=== PATIENT | male | born 1960 | race Caucasian/White ===

== ENCOUNTER 2017-09-13 23:14 | Inpatient (IN) | payer BC ==
[~2017-09-13] VITALS: Ht 167.6 cm; Wt 117.5 kg
[2017-09-13 23:40] VITALS: BP 96/69
[2017-09-14] VITALS (15 sets, daily range): BP systolic 91–131; BP diastolic 42–76
[2017-09-14 00:22] LABS: PLATELET COUNT 169 x10^3mcL (130-400)
[2017-09-14 00:26] LABS: RED CELL DISTRIBUTION WIDTH 16.7 % (11.5-14.5)
[2017-09-14 00:46] LABS: CALCIUM 8.4 mg/dL (8.5-10.1); POTASSIUM SERUM 4.7 mmol/L (3.5-5.1)
[2017-09-14 01:01] LABS: BILIRUBIN TOTAL 0.7 mg/dL (0.20-1.00); MAGNESIUM 2.8 mg/dL (1.8-2.4); T4(THYROXINE) 6.6 ug/dL (4.7-13.3); TOTAL PROTEIN, SERUM 7.5 g/dL (6.4-8.2)
[2017-09-14 01:04] LABS: ALBUMIN 3.3 g/dL (3.4-5.0)
[2017-09-14 01:26] LABS: UA SPECIFIC GRAVITY <=1.005 (1.005-1.035); microscopic required? YES; urine erythrocyte NEGATIVE (NEGATIVE)
[2017-09-14 02:18] LABS: AMPHETAMINE QUAL UR NONE DETECTED (NEG <=1000)
[2017-09-14 04:50] LABS: BASOPHIL % 0.1 % (0-2); PLATELET COUNT 140 x10^3mcL (130-400); RED CELL DISTRIBUTION WIDTH 16.8 % (11.5-14.5)
[2017-09-14 04:56] LABS: CALCIUM 7.3 mg/dL (8.5-10.1); CREATININE SERUM 1.6 mg/dL (0.7-1.3); PHOSPHOROUS 6.5 mg/dL (2.5-4.9)
[2017-09-14 05:05] LABS: CARBON DIOXIDE 23.3 mmol/L (21-32); MAGNESIUM 2.1 mg/dL (1.8-2.4)
[2017-09-15] VITALS (19 sets, daily range): BP systolic 111–140; BP diastolic 58–89
[2017-09-15 05:35] LABS: PLATELET COUNT 68 x10^3mcL (130-400); RED CELL DISTRIBUTION WIDTH 17.1 % (11.5-14.5)
[2017-09-15 05:56] LABS: CALCIUM 7.1 mg/dL (8.5-10.1); CARBON DIOXIDE 27.9 mmol/L (21-32); CHLORIDE SERUM 113 mmol/L (98-107); CREATININE SERUM 1.1 mg/dL (0.7-1.3); GFR1 > 60 mL/min; GLUCOSE SERUM 138 mg/dL (74-106); MAGNESIUM 2.8 mg/dL (1.8-2.4); PHOSPHOROUS 2.1 mg/dL (2.5-4.9); POTASSIUM SERUM 3.8 mmol/L (3.5-5.1); SODIUM SERUM 147 mmol/L (136-145)
[2017-09-15 06:03] LABS: BAND NEUTROPHIL 5 % (0-10); METAMYELOCTE 1 % (0-2); MONOCYTE 9 % (0-7); SEGMENTED NEUTROPHILS 72 % (37-75)
[2017-09-15 06:05] LABS: rbc morphology (normal/abnorm) ABNORMAL (NORMAL)
[2017-09-16] VITALS (17 sets, daily range): BP systolic 106–143; BP diastolic 60–95
[2017-09-16 05:31] LABS: CALCIUM 7.6 mg/dL (8.5-10.1); CARBON DIOXIDE 30.9 mmol/L (21-32); CHLORIDE SERUM 113 mmol/L (98-107); GFR1 > 60 mL/min; GLUCOSE SERUM 120 mg/dL (74-106); MAGNESIUM 2.3 mg/dL (1.8-2.4); PHOSPHOROUS 1.6 mg/dL (2.5-4.9); POTASSIUM SERUM 3.9 mmol/L (3.5-5.1); SODIUM SERUM 148 mmol/L (136-145)
[2017-09-16 06:13] LABS: RED CELL DISTRIBUTION WIDTH 17.1 % (11.5-14.5)
[2017-09-16 06:14] LABS: PLATELET COUNT 66 x10^3mcL (130-400)
[2017-09-16 06:37] LABS: BAND NEUTROPHIL 0 % (0-10); BASOPHIL 0 % (0-2); MONOCYTE 6 % (0-7); PLATELET MORPHOLOGY PLATELETS DECREASED; SEGMENTED NEUTROPHILS 65 % (37-75); rbc morphology (normal/abnorm) ABNORMAL (NORMAL)
[2017-09-17] VITALS (16 sets, daily range): BP systolic 111–139; BP diastolic 61–81
[2017-09-17 05:49] LABS: BASOPHIL % 0.4 % (0-2)
[2017-09-17 05:58] LABS: PLATELET COUNT 72 x10^3mcL (130-400); RED CELL DISTRIBUTION WIDTH 17.1 % (11.5-14.5)
[2017-09-17 06:00] LABS: CALCIUM 8.1 mg/dL (8.5-10.1); CARBON DIOXIDE 27.7 mmol/L (21-32); CHLORIDE SERUM 111 mmol/L (98-107); CREATININE SERUM 0.9 mg/dL (0.7-1.3); GFR1 > 60 mL/min; GLUCOSE SERUM 99 mg/dL (74-106); MAGNESIUM 1.8 mg/dL (1.8-2.4); PHOSPHOROUS 3.5 mg/dL (2.5-4.9); POTASSIUM SERUM 3.9 mmol/L (3.5-5.1); SODIUM SERUM 145 mmol/L (136-145)
[2017-09-18] VITALS (19 sets, daily range): BP systolic 108–141; BP diastolic 62–84
[2017-09-18 05:28] LABS: CALCIUM 8.5 mg/dL (8.5-10.1); CARBON DIOXIDE 30.7 mmol/L (21-32); CHLORIDE SERUM 107 mmol/L (98-107); CREATININE SERUM 0.9 mg/dL (0.7-1.3); GFR1 > 60 mL/min; GLUCOSE SERUM 107 mg/dL (74-106); MAGNESIUM 1.7 mg/dL (1.8-2.4); POTASSIUM SERUM 3.9 mmol/L (3.5-5.1); SODIUM SERUM 144 mmol/L (136-145)
[2017-09-18 05:33] LABS: PLATELET COUNT 82 x10^3mcL (130-400); RED CELL DISTRIBUTION WIDTH 16.7 % (11.5-14.5)
[2017-09-18 06:05] LABS: BAND NEUTROPHIL 0 % (0-10); BASOPHIL 0 % (0-2); MONOCYTE 8 % (0-7); SEGMENTED NEUTROPHILS 60 % (37-75)
[2017-09-18 06:07] LABS: rbc morphology (normal/abnorm) ABNORMAL (NORMAL)
[2017-09-19] VITALS (17 sets, daily range): BP systolic 105–160; BP diastolic 65–96
[2017-09-19 05:19] LABS: BASOPHIL % 0.7 % (0-2)
[2017-09-19 05:48] LABS: PLATELET COUNT 81 x10^3mcL (130-400); RED CELL DISTRIBUTION WIDTH 16.8 % (11.5-14.5)
[2017-09-19 06:14] LABS: ALBUMIN 2.5 g/dL (3.4-5.0); CALCIUM 8.6 mg/dL (8.5-10.1); CARBON DIOXIDE 26.8 mmol/L (21-32); CHLORIDE SERUM 104 mmol/L (98-107); GFR1 > 60 mL/min; GLUCOSE SERUM 113 mg/dL (74-106); MAGNESIUM 1.8 mg/dL (1.8-2.4); PHOSPHOROUS 4.5 mg/dL (2.5-4.9); POTASSIUM SERUM 3.8 mmol/L (3.5-5.1); SODIUM SERUM 141 mmol/L (136-145)
[2017-09-20] VITALS (18 sets, daily range): BP systolic 94–159; BP diastolic 58–101
[2017-09-20 05:42] LABS: BASOPHIL % 0.3 % (0-2)
[2017-09-20 05:51] LABS: CALCIUM 8.3 mg/dL (8.5-10.1); CARBON DIOXIDE 27.6 mmol/L (21-32); CHLORIDE SERUM 106 mmol/L (98-107); CREATININE SERUM 0.8 mg/dL (0.7-1.3); GFR1 > 60 mL/min; GLUCOSE SERUM 92 mg/dL (74-106); MAGNESIUM 1.8 mg/dL (1.8-2.4); PHOSPHOROUS 4.3 mg/dL (2.5-4.9); POTASSIUM SERUM 4.1 mmol/L (3.5-5.1); SODIUM SERUM 139 mmol/L (136-145)
[2017-09-20 06:07] LABS: PLATELET COUNT 63 x10^3mcL (130-400); RED CELL DISTRIBUTION WIDTH 16.1 % (11.5-14.5)
[2017-09-21] VITALS (11 sets, daily range): BP systolic 93–145; BP diastolic 57–81
[2017-09-21 06:10] LABS: BASOPHIL % 0.5 % (0-2)
[2017-09-21 06:17] LABS: CALCIUM 7.8 mg/dL (8.5-10.1); CARBON DIOXIDE 29.8 mmol/L (21-32); CHLORIDE SERUM 106 mmol/L (98-107); CREATININE SERUM 0.8 mg/dL (0.7-1.3); GFR1 > 60 mL/min; GLUCOSE SERUM 100 mg/dL (74-106); MAGNESIUM 1.7 mg/dL (1.8-2.4); PHOSPHOROUS 4.1 mg/dL (2.5-4.9); SODIUM SERUM 141 mmol/L (136-145)
[2017-09-21 06:18] LABS: PLATELET COUNT 60 x10^3mcL (130-400); RED CELL DISTRIBUTION WIDTH 15.8 % (11.5-14.5)
[2017-09-22 03:39] VITALS: BP 106/60
[2017-09-22 06:13] LABS: CALCIUM 8.5 mg/dL (8.5-10.1); CARBON DIOXIDE 27.6 mmol/L (21-32); CHLORIDE SERUM 105 mmol/L (98-107); CREATININE SERUM 0.7 mg/dL (0.7-1.3); GFR1 > 60 mL/min; GLUCOSE SERUM 94 mg/dL (74-106); MAGNESIUM 1.6 mg/dL (1.8-2.4); PHOSPHOROUS 4.3 mg/dL (2.5-4.9); POTASSIUM SERUM 3.6 mmol/L (3.5-5.1); SODIUM SERUM 140 mmol/L (136-145)
[2017-09-22 06:15] LABS: PLATELET COUNT 55 x10^3mcL (130-400); RED CELL DISTRIBUTION WIDTH 15.2 % (11.5-14.5)
[2017-09-22 07:40] VITALS: BP 131/73
[2017-09-22 10:06] VITALS: Ht 167.6 cm; Wt 117.5 kg
[2017-09-22 11:22] LABS: BAND NEUTROPHIL 3 % (0-10); MONOCYTE 9 % (0-7); SEGMENTED NEUTROPHILS 64 % (37-75)
[2017-09-22 11:23] LABS: rbc morphology (normal/abnorm) ABNORMAL (NORMAL)
[2017-09-22 11:34] VITALS: BP 128/71
[2017-09-22 15:41] VITALS: BP 134/81
[2017-09-22 18:00] VITALS: BP 148/85
[2017-09-22 21:50] VITALS: BP 159/86
[2017-09-23 06:30] VITALS: BP 179/82
[2017-09-23 07:23] LABS: PLATELET COUNT 67 x10^3mcL (130-400); RED CELL DISTRIBUTION WIDTH 15.2 % (11.5-14.5)
[2017-09-23 07:48] LABS: CALCIUM 8.4 mg/dL (8.5-10.1); CARBON DIOXIDE 29.4 mmol/L (21-32); CHLORIDE SERUM 105 mmol/L (98-107); CREATININE SERUM 0.7 mg/dL (0.7-1.3); GFR1 > 60 mL/min; GLUCOSE SERUM 109 mg/dL (74-106); MAGNESIUM 1.8 mg/dL (1.8-2.4); PHOSPHOROUS 3.8 mg/dL (2.5-4.9); POTASSIUM SERUM 3.2 mmol/L (3.5-5.1); SODIUM SERUM 142 mmol/L (136-145)
[2017-09-23 09:45] VITALS: BP 151/90
[2017-09-23 10:37] LABS: BAND NEUTROPHIL 4 % (0-10); BASOPHIL 0 % (0-2); MONOCYTE 12 % (0-7); SEGMENTED NEUTROPHILS 57 % (37-75)
[2017-09-23 10:38] LABS: PLATELET MORPHOLOGY PLATELETS DECREASED; rbc morphology (normal/abnorm) ABNORMAL (NORMAL)
[2017-09-23 12:00] VITALS: BP 156/88
[2017-09-23 16:55] VITALS: BP 144/88
[2017-09-23 18:08] VITALS: BP 156/88
[2017-09-23 22:51] VITALS: BP 120/66
[2017-09-24 05:15] VITALS: BP 146/82
[2017-09-24 06:40] LABS: PLATELET COUNT 78 x10^3mcL (130-400); RED CELL DISTRIBUTION WIDTH 15.8 % (11.5-14.5)
[2017-09-24 06:51] LABS: CALCIUM 8.7 mg/dL (8.5-10.1); CARBON DIOXIDE 24.6 mmol/L (21-32); CHLORIDE SERUM 107 mmol/L (98-107); CREATININE SERUM 0.7 mg/dL (0.7-1.3); GFR1 > 60 mL/min; GLUCOSE SERUM 124 mg/dL (74-106); MAGNESIUM 1.6 mg/dL (1.8-2.4); PHOSPHOROUS 4.1 mg/dL (2.5-4.9); POTASSIUM SERUM 3.4 mmol/L (3.5-5.1); SODIUM SERUM 142 mmol/L (136-145)
[2017-09-24 08:57] LABS: BAND NEUTROPHIL 0 % (0-10); BASOPHIL 0 % (0-2); MONOCYTE 10 % (0-7); PLATELET MORPHOLOGY PLATELETS DECREASED; SEGMENTED NEUTROPHILS 64 % (37-75); rbc morphology (normal/abnorm) ABNORMAL (NORMAL)
[2017-09-24 08:59] LABS: target cell (codocyte) 1+
[2017-09-24 10:28] VITALS: BP 159/87
[2017-09-24 13:34] VITALS: BP 142/79
[2017-09-24 18:00] VITALS: BP 148/85
[2017-09-24 21:32] VITALS: BP 139/78
[2017-09-25 05:25] VITALS: BP 145/83
[2017-09-25 09:59] VITALS: BP 143/87
[2017-09-25] MEDS ORDERED: FOL1 PO (13:49)
[2017-09-25] MEDS ORDERED: THI100 PO (13:50)
[2017-09-25] MEDS ORDERED: ASPIR 8181 MG PO (13:52)
[2017-09-25] MEDS ORDERED: LIBRAX1 CAP PO (13:55)
[2017-09-25 14:15] VITALS: BP 143/87
[2017-09-25 14:26] VITALS: BP 136/83
== END 2017-09-25 15:25 | disposition home or self-care (01) | DRG 207 ==
LOC: ED 23:14 → EDBD 23:14 → DU 09-14 07:44 → IC 09-14 07:44 → DU 09-22 15:22 → MU 09-23 09:57 → DU 09-23 17:15
PROVIDERS: Emergency Medicine; Family Medicine; Student in an Organized Health Care Education/Training Program
PROC: 5A1955Z Respiratory Ventilation, Greater than 96 Consecutive Hours (ICD-10-PCS; principal; 2017-09-14)
PROC: 0BH17EZ Insertion of Endotracheal Airway into Trachea, Via Natural or Artificial Opening (ICD-10-PCS; 2017-09-14)
PROC: 05HM33Z Insertion of Infusion Device into Right Internal Jugular Vein, Percutaneous Approach (ICD-10-PCS; 2017-09-14)
PROC: B543ZZA Ultrasonography of Right Jugular Veins, Guidance (ICD-10-PCS; 2017-09-14)
DX: J96.01 Acute respiratory failure with hypoxia (principal); J69.0 Pneumonitis due to inhalation of food and vomit; K85.20 Alcohol induced acute pancreatitis without necrosis or infection; N17.0 Acute kidney failure with tubular necrosis; G92 Toxic encephalopathy; E44.0 Moderate protein-calorie malnutrition; E66.2 Morbid (severe) obesity with alveolar hypoventilation; E87.0 Hyperosmolality and hypernatremia; Z68.43 Body mass index [BMI] 50.0-59.9, adult; K72.90 Hepatic failure, unspecified without coma; F10.20 Alcohol dependence, uncomplicated; R74.0 Nonspecific elevation of levels of transaminase and lactic acid dehydrogenase [LDH]; E02 Subclinical iodine-deficiency hypothyroidism; E87.8 Other disorders of electrolyte and fluid balance, not elsewhere classified; E83.41 Hypermagnesemia
CPT/HCPCS: 36600; 82962; 83880; 87804; 90658; 92610-GN; 97110-GP; 97116-GP; 97530-GP; A4628; G0480; J1642; J1644; J1885; J1940; J1956; J2060; J2250; J2270; J2543; J2704; J2930; J3475; J3490; J7030; J7042; J7050; J7613; J7620; J7644; Q0092